=== PATIENT | female | born 1985 | race African-American/Black ===

== ENCOUNTER 2020-01-01 23:34 | Emergency (ER) | payer MEDICAID ==
[~2020-01-01] VITALS: Ht 167.6 cm; Wt 64.0 kg
[2020-01-02] MEDS: CLINDAMYCIN HCL 150MG CAPSULE PO SCH ×2 (00:15→00:24)
[2020-01-02] MEDS ORDERED: IBUPROFEN 600MG TABLET PO ONE (00:15)
[2020-01-02 00:24] VITALS: BP 122/83
== END 2020-01-02 01:02 | disposition home or self-care (01) ==
LOC: ER 23:34
DX: L03.116 Cellulitis of left lower limb (principal); D64.9 Anemia, unspecified; Z88.0 Allergy status to penicillin
CPT/HCPCS: 93005; 99283

== ENCOUNTER 2020-01-14 17:22 | Inpatient (IN) | payer MEDICAID ==
[~2020-01-14] VITALS: Ht 167.6 cm; Wt 60.3 kg
[2020-01-14] MEDS ORDERED: SODIUM CHLORIDE 0.9% 1,000 ML IV ONE (18:36)
[2020-01-14 18:52] LABS: BASOPHILS % 0.7 % (0.0-2.0); EOSINOPHILS % 1.9 % (0.0-5.0); HEMATOCRIT. 40.1 % (36.0-48.0); HEMOGLOBIN. 13.1 g/dL (12.0-16.0); LYMPHOCYTES % 14.7 % (20.0-50.0); MEAN CORPUSCULAR HEMOGLOBIN 28.3 pg (28.0-32.0); MEAN CORPUSCULAR VOLUME 87.2 fL (81.0-99.0); MEAN PLATELET VOLUME 9.2 fl (7.4-10.4); MONOCYTES % 4.8 % (2.0-8.0); NEUTROPHILS % 77.9 % (40.0-76.0); PLATELET 207 x1000/uL (130-400); RED CELL DISTRIBUTION WIDTH 13.6 % (11.6-14.6)
[2020-01-14 18:56] LABS: CHLORIDE 103 mEq/L (98-107)
[2020-01-14 19:01] LABS: ETHANOL BLOOD < 10 mg/dL
[2020-01-14 19:08] LABS: HCG SCREEN NEGATIVE
[2020-01-14 19:20] LABS: *BARBITURATES SCREEN URINE NEGATIVE (NEGATIVE); *BENZODIAZEPINES SCREEN URINE NEGATIVE (NEGATIVE)
[2020-01-14 19:21] LABS: CANNABINOID URINE SCREEN NEGATIVE (NEGATIVE); METHADONE URINE SCREEN NEGATIVE (NEGATIVE); OPIATES URINE SCREEN NEGATIVE (NEGATIVE); PHENCYCLIDINE URINE SCREEN NEGATIVE (NEGATIVE)
[2020-01-14 19:29] LABS: *AMPHETAMINES SCREEN URINE PRESUMTIVE POSITIVE (NEGATIVE); *COCAINE SCREEN URINE PRESUMTIVE POSITIVE (NEGATIVE)
[2020-01-14] MEDS ORDERED: ASPIRIN 81MG TABLET PO ONE (21:45)
[2020-01-15] MEDS ORDERED: ZOLPIDEM TARTRATE 5MG TABLET PO PRN (01:45)
[2020-01-15 05:22] VITALS: BP 138/57
[2020-01-15] MEDS ORDERED: HYDROCODONE/ACETAMINOPHEN 5/325MG TABLET PO PRN (05:45)
[2020-01-15] MEDS ORDERED: ONDANSETRON HCL 4MG/2ML INJ IV PRN (05:45)
[2020-01-15 08:01] VITALS: BP 153/51
[2020-01-15] MEDS ORDERED: KETOROLAC 30MG/ML VIAL IV PRN (08:45)
[2020-01-15 10:00] VITALS: BP 124/74
[2020-01-15 12:00] VITALS: BP 137/64
[2020-01-15 12:44] VITALS: BP 108/67
== END 2020-01-15 13:13 | disposition home or self-care (01) | DRG 816 ==
LOC: ER 17:22 → 3WST 22:23 → ENRESERV 01-15 04:17
PROVIDERS: ADMIT Internal Medicine; ATTEND Internal Medicine
DX: T40.5X1A Poisoning by cocaine, accidental (unintentional), initial encounter (principal); F15.90 Other stimulant use, unspecified, uncomplicated; R55 Syncope and collapse; F17.210 Nicotine dependence, cigarettes, uncomplicated; K21.9 Gastro-esophageal reflux disease without esophagitis; F14.90 Cocaine use, unspecified, uncomplicated; Z88.0 Allergy status to penicillin; Y92.89 Other specified places as the place of occurrence of the external cause; Z79.899 Other long term (current) drug therapy
CPT/HCPCS: 36415; 71045; 80053; 80305; 80320; 82962; 83735; 84484; 84703; 85025; 93005; 93306; 99285; J1885; J7030; G0480

== ENCOUNTER 2020-02-24 00:22 | Emergency (ER) | payer MEDICAID, OTHER ==
[~2020-02-24] VITALS: Ht 167.6 cm; Wt 57.0 kg
[2020-02-24 00:25] VITALS: BP 139/89
== END 2020-02-24 01:18 | disposition home or self-care (01) ==
LOC: ER 00:22
DX: S90.562A Insect bite (nonvenomous), left ankle, initial encounter (principal); L03.116 Cellulitis of left lower limb; W57.XXXA Bitten or stung by nonvenomous insect and other nonvenomous arthropods, initial encounter; Y93.89 Activity, other specified; Y92.89 Other specified places as the place of occurrence of the external cause; Y99.8 Other external cause status; D64.9 Anemia, unspecified
CPT/HCPCS: 99281; 99283

== ENCOUNTER 2021-02-11 00:09 | Emergency (ER) | payer MEDICAID, OTHER ==
[~2021-02-11] VITALS: Ht 182.9 cm; Wt 59.0 kg
[2021-02-11] MEDS ORDERED: TOPUD MT (03:33)
[2021-02-11] MEDS ORDERED: HYDR-4233 TP (03:33)
[2021-02-11 03:58] VITALS: BP 128/78
== END 2021-02-11 04:00 | disposition home or self-care (01) ==
LOC: ER 00:09
DX: S30.861A Insect bite (nonvenomous) of abdominal wall, initial encounter (principal); W57.XXXA Bitten or stung by nonvenomous insect and other nonvenomous arthropods, initial encounter; Y93.89 Activity, other specified; Y92.89 Other specified places as the place of occurrence of the external cause; Y99.8 Other external cause status
CPT/HCPCS: 99282

== ENCOUNTER 2021-07-23 08:57 | Emergency (ER) | payer MEDICAID, OTHER ==
[~2021-07-23] VITALS: Ht 167.6 cm; Wt 59.0 kg
[~2021-07-23 08:57] MED LIST: HYDR-4233 TP; TOPUD MT
[2021-07-23 11:06] LABS: CHLORIDE 106 mEq/L (98-107)
[2021-07-23 11:21] LABS: BASOPHILS % 0.4 % (0.0-2.0); HEMATOCRIT. 37.8 % (36.0-48.0); HEMOGLOBIN. 12.7 g/dL (12.0-16.0); LYMPHOCYTES % 26.5 % (20.0-50.0); MEAN CORPUSCULAR HEMOGLOBIN 28.6 pg (28.0-32.0); MEAN CORPUSCULAR VOLUME 85.5 fL (81.0-99.0); MEAN PLATELET VOLUME 8.9 fl (7.4-10.4); MONOCYTES % 6.6 % (2.0-8.0); NEUTROPHILS % 57.5 % (40.0-76.0); PLATELET 238 x1000/uL (130-400); RED BLOOD CELL COUNT 4.43 mill/uL (4.2-5.4); RED CELL DISTRIBUTION WIDTH 14.4 % (11.6-14.6)
[2021-07-23 11:25] LABS: HCG SCREEN POSITIVE
[2021-07-23 14:21] VITALS: BP 123/62
== END 2021-07-23 14:22 | disposition home or self-care (01) ==
LOC: ER 08:57
DX: O20.0 Threatened abortion (principal); Z3A.01 Less than 8 weeks gestation of pregnancy; Z98.890 Other specified postprocedural states; Z88.0 Allergy status to penicillin
CPT/HCPCS: 36415; 76830; 76856; 80053; 84702; 84703; 85025; 86900; 99284

== ENCOUNTER 2021-12-01 00:39 | Emergency (ER) | payer MEDICAID, OTHER ==
[~2021-12-01] VITALS: Ht 167.6 cm; Wt 57.2 kg
[2021-12-01] MEDS ORDERED: DIPH28.34 TP (01:33)
[2021-12-01] MEDS ORDERED: CLIN-194 MT (01:33)
[2021-12-01] MEDS ORDERED: LACT1CAP78 MT (01:33)
[2021-12-01] MEDS ORDERED: TOPUD PO (01:33)
[2021-12-01] MEDS ORDERED: IBUP-2028 MT (01:33)
[2021-12-01 02:13] VITALS: BP 115/78
== END 2021-12-01 02:13 | disposition home or self-care (01) ==
LOC: ER 00:39
DX: S90.562A Insect bite (nonvenomous), left ankle, initial encounter (principal); S90.561A Insect bite (nonvenomous), right ankle, initial encounter; L03.116 Cellulitis of left lower limb; L03.115 Cellulitis of right lower limb; Z98.890 Other specified postprocedural states; Z88.0 Allergy status to penicillin; W57.XXXA Bitten or stung by nonvenomous insect and other nonvenomous arthropods, initial encounter; Y93.89 Activity, other specified; Y92.018 Other place in single-family (private) house as the place of occurrence of the external cause
CPT/HCPCS: 99281

== ENCOUNTER 2022-05-29 10:15 | Emergency (ER) | payer MEDICAID, OTHER ==
[~2022-05-29] VITALS: Ht 175.3 cm; Wt 60.0 kg
[~2022-05-29 10:15] MED LIST changes: +CLIN-194 MT; +DIPH28.34 TP; +IBUP-2028 MT; +LACT1CAP78 MT; +TOPUD PO
[2022-05-29 10:28] VITALS: BP 126/87
[2022-05-29 12:52] LABS: *AMPHETAMINES SCREEN URINE NEGATIVE (NEGATIVE); *BARBITURATES SCREEN URINE NEGATIVE (NEGATIVE); *BENZODIAZEPINES SCREEN URINE NEGATIVE (NEGATIVE); *COCAINE SCREEN URINE NEGATIVE (NEGATIVE); METHADONE URINE SCREEN NEGATIVE (NEGATIVE); OPIATES URINE SCREEN NEGATIVE (NEGATIVE); PHENCYCLIDINE URINE SCREEN NEGATIVE (NEGATIVE)
[2022-05-29 13:06] LABS: CANNABINOID URINE SCREEN PRESUMTIVE POSITIVE (NEGATIVE)
== END 2022-05-29 13:23 | disposition home or self-care (01) ==
LOC: ER 10:15
DX: Z00.00 Encounter for general adult medical examination without abnormal findings (principal)
CPT/HCPCS: 80305; 99283

== ENCOUNTER 2024-04-08 10:49 | Emergency (ER) | payer MEDICAID ==
[~2024-04-08] VITALS: Ht 167.6 cm; Wt 63.5 kg
[~2024-04-08 10:49] MED LIST changes: +ASPI-740 PO; +ONDA-239 PO
[2024-04-08 10:51] VITALS: O2SAT 99
[2024-04-08] MEDS ORDERED: LACT1CAP78 MT (11:25)
[2024-04-08] MEDS ORDERED: ACET-2708 MT (11:25)
[2024-04-08] MEDS ORDERED: IBUP-2028 MT (11:25)
[2024-04-08] MEDS ORDERED: CLIN-116 MT (11:25)
[2024-04-08] MEDS: KETOROLAC 30MG/ML VIAL IM ONE (11:50)
[2024-04-08] MEDS: ACETAMINOPHEN 325MG TABLET PO ONE (11:51)
[2024-04-08 11:54] VITALS: BP 143/83; PULSE 82; RESP 16; TEMP 36.61404; O2SAT 99
== END 2024-04-08 12:00 | disposition home or self-care (01) ==
LOC: ER 10:57
DX: K04.7 Periapical abscess without sinus (principal); Z88.0 Allergy status to penicillin; Z79.899 Other long term (current) drug therapy
CPT/HCPCS: 99283; 96372; J1885

== ENCOUNTER 2025-03-21 09:27 | Emergency (ER) | payer MEDICAID ==
[~2025-03-21] VITALS: Ht 170.2 cm; Wt 60.0 kg
[~2025-03-21 09:27] MED LIST changes: +ACET-2708 MT; +CLIN-116 MT
[2025-03-21 09:35] VITALS: O2SAT 99
[2025-03-21 10:11] VITALS: BP 154/91; PULSE 93; RESP 18; TEMP 36.8; O2SAT 95
== END 2025-03-21 10:42 | disposition left against medical advice (07) ==
LOC: ER 09:27
DX: H93.8X2 Other specified disorders of left ear (principal)
CPT/HCPCS: 99281